=== PATIENT | female | born 1990 | race Caucasian/White ===

== ENCOUNTER 2021-11-09 14:12 | Emergency (ER) | payer OTHER, SELFPAY ==
[2021-11-09 14:18] VITALS: BP 152/85; PULSE 67; RESP 20; TEMP 36.5; O2SAT 100
--- NOTE | 2021-11-09 14:33 | ED.WOUNDLAC ---
HPI - Wound/Laceration General Chief Complaint: Wound/Laceration Stated Complaint: Right Leg Laceration Time Seen by Provider: 11/09/21 14:20 Source: patient and RN notes reviewed History of Present Illness HPI narrative: Patient is a 31-year-old male who presents the urgent care with complaints of a laceration to the right lower leg. Patient states that he cut it on ceramic tile. Patient states to happen just prior to arrival. Patient is not up-to-date on his tetanus. No other acute complaints. No acute distress noted. Patient aware of the plan of care. Some parts of this dictation were generated by voice recognition software and may contain typographical and/or grammatical inaccuracies. Related Data Home Medications Medication Instructions Recorded Confirmed No Home Medications 11/09/21 11/09/21 Allergies Allergy/AdvReac Type Severity Reaction Status Date / Time No Known Allergies Allergy Verified 11/09/21 14:33 Review of Systems Review of Systems: CONSTITUTIONAL: Denies fever, chills, or sweats. EYES: Denies visual changes, redness, or discharge. ENT: Denies rhinorrhea, congestion, sore throat, or otalgia. CARDIOVASCULAR: Denies chest pain, palpitations, or edema. RESPIRATORY: Denies cough or dyspnea. GASTROINTESTINAL: Denies abdominal pain, nausea, vomiting, or diarrhea. GENITOURINARY: Denies dysuria or hematuria. SKIN: Reports laceration to the right lower leg MUSCULOSKELETAL: Denies back pain, joint pain, or myalgia. NEUROLOGIC: Denies headache, numbness, or weakness. All other systems reviewed are negative, except as documented in HPI. PMFSH Comments At the time of my signature, I reviewed and agree with the nursing past medical, surgical, social, and family history. There is no relevant family history pertinent to the patient complaint. Exam Narrative: GENERAL: This is a well-nourished, well-developed patient, in no apparent distress. HEAD: normocephalic, atraumatic. EYES: PERRL. Sclera clear/white. Vision is grossly intact. EARS: External ears normal NOSE: External nose normal with no obvious nasal discharge, nares without redness, no rhinorrhea. THROAT: Mucous membranes moist NECK: Neck supple SKIN: 4 cm linear laceration to the lateral right lower leg. Intact with no suspicious lesions or rash, good texture and turgor. NEURO: awake, alert, and oriented to person, place and time. There were no obvious focal neurologic abnormalities. EXTREMITIES: No clubbing, cyanosis, or edema. Course Course Level of Care: Express Care Visit Vital Signs Vital signs: Vital Signs Temperature 97.7 F 11/09/21 14:18 Pulse Rate 67 11/09/21 14:18 Respiratory Rate 11/09/21 14:18 Blood Pressure 152/85 H 11/09/21 14:18 Pulse Oximetry 100 11/09/21 14:18 Oxygen Delivery Room Air 11/09/21 14:18 Temperature 97.7 F 11/09/21 14:18 Pulse Rate 67 11/09/21 14:18 Respiratory Rate 11/09/21 14:18 Blood Pressure 152/85 H 11/09/21 14:18 Pulse Oximetry 100 11/09/21 14:18 Oxygen Delivery Room Air 11/09/21 14:18 Reviewed-patient is informed that they may have pre-hypertension or hypertension based on a blood pressure reading in the department. I recommend the patient call the primary care provider listed on their discharge instructions or a physician of their choice this week to arrange follow-up for further evaluation of possible pre-hypertension or hypertension. Procedures Laceration Laceration 1: Site: lower extremity (Right lower leg) Side (If applicable): right Size (cm): 4.0 Depth: simple, single layer Amount of anesthesia used (mL): 1.5 Pre-repair: irrigated extensively (Technicare normal saline) ====== Skin Level ====== ====== Subcutaneous Layer ====== ====== Muscle Layer ====== ====== Tendon Layer ====== Dressin cm linear laceration to right lateral lower leg irrigated extensively with Technicar
[2021-11-09] MEDS: TETANUS,DIPHTHERIA,AC PERTUSSIS ADULT (0.5 ML) BOOSTRIX IM (14:34)
== END 2021-11-09 15:20 | disposition home or self-care (01) ==
PROVIDERS: Emergency Provider Nurse Practitioner Family
DX: S81.811A Laceration without foreign body, right lower leg, initial encounter (principal); W45.8XXA Other foreign body or object entering through skin, initial encounter
CPT/HCPCS: 12002; 90471; 90715; 99212; G0463